=== PATIENT | female | born 1965 | race Caucasian/White ===

== ENCOUNTER → 2016-06-23 | Outpatient (CLI) | payer BC ==
[~2016-06-23] MED LIST: HYDR200T PO; INSULIN PUMP SQ; LEVO125T6 PO; LISI2.5T PO; NF-DICLOTA PO; SIMV10TA3 PO
--- OUTSIDE RECORDS SUMMARY | 2016-06-23 07:27 | XMS REPORT | Continuity of Care Document ---
Author Author [facility] Organization [facility] Address Unknown Phone Unavailable Care Team Providers Care Manager Custom Name Role Phone PRADIP BRYSON MD PCP Insurance Providers Payer Name Policy Number Subscriber Name Relationship [id number] Tejal Sargent 01 Advance Directives Directive Response Recorded Date/Time Advance Directives No 09/30/15 10:50am Resuscitation Status Full Code 09/30/15 10:50am Chief Complaint and Reason for Visit Chief Complaint Glucose Problems Reason for Visit Anemia Hypoglycemia associated with diabetes Problems Active Problems Medical Problem Onset Date Status Anemia Unknown Acute Hypoglycemia associated with diabetes Unknown Acute Medications Current Home Medications Medication Dose Units Route Directions Days/Qty Instructions Start Date Diclofenac Sod 100 Mg Unknown Dose Oral Daily 09/30/15 Hydroxychloroquine Sulfate 200 Mg Unknown Dose Oral 09/30/15 Lisinopril 2.5 Mg Unknown Dose Oral Daily 09/30/15 Levothyroxine Sodium 125 Mcg Unknown Dose Oral Daily 09/30/15 Simvastatin 10 Mg Unknown Dose Oral 09/30/15 [Insulin Pump] Unknown Dose Sub-Q Continuous 09/30/15 Social History Social History Problem Response Recorded Date/Time Alcohol Use Occasionally Uses 09/30/2015 11:26am Recreational Drug Use No 09/30/2015 10:50am Recent Foreign Travel No 09/30/2015 10:50am Recent Infectious Disease Exposure No 09/30/2015 10:50am Hospitalization with Isolation Denies 09/30/2015 10:50am Smoking Status Never a Smoker 09/30/2015 10:50am Query Response Start Date Stop Date Smoking Status Never a Smoker Hospital Discharge Instructions No hospital discharge instructions. Plan of Care Discharge Date 09/30/15 1:14pm Disposition 01 HOME, SELF-CARE Condition at Discharge Improved Instructions/Education Provided High Protein Diet (ED) Iron Rich Diet (ED) Diabetic Hypoglycemia (ED) Iron Deficiency Anemia (DC) Prescriptions See Medication Section Referrals PRADIP BRYSON MD - Primary Care Physician Additional Instructions/Education TAKE IRON PILL DAILY ADD DAILY STOOL SOFTENER WHILE TAKING IRON CHECK YOUR BLOOD GLUCOSE 4 TIMES A DAY--BEFORE EACH MEAL AND AT BEDTIME, AND KEEP DIARY HIGH PROTEIN DIET FOLLOW UP WITH YOUR DR THIS WEEK FOR FURTHER CARE RETURN TO ER IF SYMPTOMS RETURN All discharge instructions reviewed with patient and/or family. Voiced understanding. Functional Status No functional status results. Allergies, Adverse Reactions, Alerts No known allergies. Immunizations No immunization records. Vital Signs Acute Vital Signs Vital Response Date/Time Temperature (Fahrenheit) 97.2 degrees F (97.6 - 99.5) 09/30/2015 10:50am Temperature (Calculated Celsius) 36.77445 degrees C (36.4 - 37.5) 09/30/2015 10:50am Pulse Rate (adult) 77 bpm (60 - 90) 09/30/2015 10:50am Respiratory Rate 16 bpm (12 - 24) 09/30/2015 10:50am O2 Sat by Pulse Oximetry 100 % (88 - 100) 09/30/2015 10:50am Blood Pressure 138/70 mm Hg 09/30/2015 10:50am Blood Pressure Mean 92 mm Hg 09/30/2015 10:50am Pain Pain Intensity 0 09/30/2015 10:50am Height (Feet) 5 feet 09/30/2015 10:50am Height (Inches) 3 inches 09/30/2015 10:50am Height (Calculated Centimeters) 160.162367 cm 09/30/2015 10:50am Weight (Pounds) 170 pounds 09/30/2015 10:50am Weight (Calculated Kilograms) 77.268628 kilograms 09/30/2015 10:50am Height 5 ft 3 in Weight 170 lb Body Mass Index 30.1 kg/m^2 Results Laboratory Results Test Name Result Units Flags Reference Collection Date/Time Result Date/ Time Comments White Blood Count 6.9 10^3/uL 4.3-11.0 09/30/2015 11:09/30/2015 11 :25am Red Blood Count 3.69 10^6/uL L 4.35-5.85 09/30/2015 11:09/30/2015 11 :25am Hemoglobin 9.0 G/DL L 11.5-16.0 09/30/2015 11:09/30/2015 11:25am Hematocrit 29 % L 35-52 09/30/2015 11:09/30/2015 11:25am Mean Corpuscular Volume 79 FL L 80-99 09/30/2015 11:09/30/2015 11: 25am Mean Corpuscular Hemoglobin 24 PG L 25-34 09/30/2015 11:09/30/2015 11:25am Mean Corpuscular Hemoglobin Concent 31 G/DL L 32-36 09/30/2015 11: 11:25am Red Cell Distribution Width 15.6 % H 10.0-14.5 09/30/2015 11:2015 11:25am Platelet Count 377 10^3/uL 130-400 09/30/2015 11:09/30/2015 11: 25am Mean Platelet Volume 9.3 FL 7.4-10.4 09/30/2015 11:09/30/2015 11: 25am Neutrophils (%) (Auto) 74 % 42-75 09/30/2015 11:09/30/2015 11: 25am Lymphocytes (%) (Auto) 13 % 12-44 09/30/2015 11:09/30/2015 11: 25am Monocytes (%) (Auto) 10 % 0-12 09/30/2015 11:09/30/2015 11:25am Eosinophils (%) (Auto) 1 % 0-10 09/30/2015 11:09/30/2015 11:25am Basophils (%) (Auto) 1 % 0-10 09/30/2015 11:09/30/2015 11:25am Neutrophils # (Auto) 5.1 X 10^3 1.8-7.8 09/30/2015 11:09/30/2015 11:25am Lymphocytes # (Auto) 0.9 X 10^3 L 1.0-4.0 09/30/2015 11:09/30/2015 11:25am Monocytes # (Auto) 0.7 X 10^3 0.0-1.0 09/30/2015 11:09/30/2015 11: 25am Eosinophils # (Auto) 0.1 10^3/uL 0.0-0.3 09/30/2015 11:09/30/2015 11:25am Basophils # (Auto) 0.1 10^3/uL 0.0-0.1 09/30/2015 11:09/30/2015 11 :25am Urine Color YELLOW 09/30/2015 12:pm 09/30/2015 12:54pm Urine Clarity CLEAR 09/30/2015 12:pm 09/30/2015 12:54pm Urine pH 6 5-9 09/30/2015 12:pm 09/30/2015 12:54pm Urine Specific [place] 1.015 * 1.016-1.022 09/30/2015 12:pm 2015 12:54pm Urine Protein 2+ * NEGATIVE 09/30/2015 12:pm 09/30/2015 12:54pm Urine Glucose (UA) 3+ * NEGATIVE 09/30/2015 12:pm 09/30/2015 12:54pm Urine RBC (Auto) NEGATIVE NEGATIVE 09/30/2015 12:pm 09/30/2015 12: 54pm Urine Ketones NEGATIVE NEGATIVE 09/30/2015 12:pm 09/30/2015 12: 54pm Urine Nitrite NEGATIVE NEGATIVE 09/30/2015 12:pm 09/30/2015 12: 54pm Urine Bilirubin NEGATIVE NEGATIVE 09/30/2015 12:pm 09/30/2015 12: 54pm Urine Urobilinogen NORMAL MG/DL NORMAL 09/30/2015 12:pm 09/30/2015 12 :54pm Urine Leukocyte Esterase NEGATIVE NEGATIVE 09/30/2015 12:pm 2015 12:54pm Urine RBC NONE /HPF 09/30/2015 12:pm 09/30/2015 12:54pm Urine WBC 0-2 /HPF 09/30/2015 12:pm 09/30/2015 12:54pm Urine Bacteria NEGATIVE /HPF 09/30/2015 12:27pm 09/30/2015 12:54pm Urine Squamous Epithelial Cells 2-5 /HPF 09/30/2015 12:pm 2015 12:54pm Urine Crystals NONE /LPF 09/30/2015 12:pm 09/30/2015 12:54pm Urine Casts NONE /LPF 09/30/2015 12:pm 09/30/2015 12:54pm Urine Mucus SMALL /LPF * 09/30/2015 12:pm 09/30/2015 12:54pm Urine Culture Indicated NO 09/30/2015 12:27pm 09/30/2015 12:54pm Sodium Level 143 MMOL/L 135-145 09/30/2015 11:09/30/2015 11:48am Potassium Level 3.8 MMOL/L 3.6-5.0 09/30/2015 11:09/30/2015 11: 48am Chloride Level 106 MMOL/L 98-107 09/30/2015 11:09/30/2015 11:48am Carbon Dioxide Level 26 MMOL/L 21-32 09/30/2015 11:09/30/2015 11: 48am Anion Gap 11 MMOL/L 5-14 09/30/2015 11:09/30/2015 11:48am Blood Urea Nitrogen 14 MG/DL 7-18 09/30/2015 11:09/30/2015 11: 48am Creatinine 0.66 MG/DL 0.60-1.30 09/30/2015 11:09/30/2015 11:48am BUN/Creatinine Ratio 21 09/30/2015 11:09/30/2015 11:48am Estimat Glomerular Filtration Rate > 60 09/30/2015 11:2015 11:48am GFR INTERPRETIVE DATA UNITS FOR ESTIMATED GFR (eGFR): mL/min/1.73 M2 REFERENCE RANGE FOR ESTIMATED GFR (eGFR) eGFR NORMAL eGFR >60 MODERATELY DECREASED eGFR 30-59 SEVERLY DECREASED eGFR 15-29 KIDNEY FAILURE <15 (OR DIALYSIS) Glucose Level 47 MG/DL CL 70-105 09/30/2015 11:09/30/2015 11:48am RESULTS CALLED TO AMBROSIO AT 1147. RESULTS READ BACK: YES. Glucometer 131 MG/DL H 70-110 09/30/2015 11:36am 09/30/2015 12:01pm Calcium Level 8.2 MG/DL L 8.5-10.1 09/30/2015 11:09/30/2015 11:48am Magnesium Level 2.0 MG/DL 1.8-2.4 09/30/2015 11:09/30/2015 11: 48am Total Bilirubin 0.6 MG/DL 0.1-1.0 09/30/2015 11:11a09/30/2015 11: 48am Alkaline Phosphatase 46 U/L 40-136 09/30/2015 11:09/30/2015 11: 48am Aspartate Amino Transf (AST/SGOT) 19 U/L 5-34 09/30/2015 11:2015 11:48am Alanine Aminotransferase (ALT/SGPT) 11 U/L 0-55 09/30/2015 11:11a 11:48am Total Protein 6.1 G/DL L 6.4-8.2 09/30/2015 11:09/30/2015 11:48am Albumin 3.8 G/DL 3.2-4.5 09/30/2015 11:11a09/30/2015 11:48am Amylase Level 61 U/L 25-125 09/30/2015 11:09/30/2015 11:48am Lipase 93 U/L H 8-78 09/30/2015 11:11a09/30/2015 11:48am TSH [place] Testing 1.12 UIU/ML 0.35-4.94 09/30/2015 11:2015 12:05pm Procedures No known history of procedures. Encounters Encounter Location Arrival/Admit Date Discharge/Depart Date Attending Provider Departed Emergency Room [facility] 09/30/15 10:48am 1:14pm NACHO ESPARZA DO Recent Diagnosis
--- NOTE | 2016-06-23 20:56 | Diagnostic Imaging Report ---
Digital mammogram bilateral screening. This study was compared to the prior exams of 03/12/2014, 02/01/2012, and 12/28/2009. At this time, there are no current complaints. The current study was also evaluated with a Computer Aided Detection (CAD) system. FINDINGS: The fibroglandular tissue in both breasts is heterogeneously dense. This does limit the sensitivity of this exam. Overall, there does not appear to have been any significant change when compared to the prior study. No primary or secondary sign of malignancy is noted. IMPRESSION: 1. There is no radiographic evidence for malignancy. 2. The patient should have her annual bilateral screening mammogram on schedule in June 2017. ACR BI-RADS Category 1: Negative. Result letter will be mailed to the patient. Note: At least 10% of breast cancer is not imaged by mammography. Dictated by: Dictated on workstation # [id number]
== END ==
LOC: RAD 07:24
PROVIDERS: ATTEND Family Medicine
DX: Z12.31 Encounter for screening mammogram for malignant neoplasm of breast (principal)
CPT/HCPCS: 77067

== ENCOUNTER → 2018-02-09 | Outpatient (CLI) | payer BC ==
[~2018-02-09] MED LIST changes: +DICL100T3 PO; -HYDR200T PO; +HYDR200T78 PO; -NF-DICLOTA PO
--- NOTE | 2018-02-09 09:37 | Diagnostic Imaging Report ---
Indication: Routine screening. Comparison is made with prior mammogram from 06/23/2016 and 03/12/2014. 2-D and 3-D bilateral screening mammography was performed with CAD. Scattered fibroglandular densities are identified bilaterally. The parenchymal pattern is stable. No mass or malignant-appearing microcalcifications are seen. The axillae are unremarkable. Impression: BI-RADS category 1 No mammographic features suspicious for malignancy are identified. Dictated by: Dictated on workstation # [id number]
== END ==
LOC: RAD 07:30
PROVIDERS: ATTEND Family Medicine
DX: Z12.31 Encounter for screening mammogram for malignant neoplasm of breast (principal)
CPT/HCPCS: 77067

== ENCOUNTER 2018-03-14 15:24 | Outpatient (CLI) | payer BC ==
[~2018-03-14] VITALS: Ht 160 cm; Wt 69.4 kg
[2018-03-14] MEDS ORDERED: LEVO137T2 PO (15:27)
[2018-03-14] MEDS ORDERED: LISI10TA2 PO (15:27)
[2018-03-14] MEDS ORDERED: ATOR10TA66 PO (15:27)
[2018-03-14] MEDS ORDERED: DICL75TA2 PO (15:27)
== END 2018-03-14 15:29 | disposition home or self-care (01) ==
LOC: PREOP 15:24
PROVIDERS: ATTEND Surgery
DX: Z01.818 Encounter for other preprocedural examination (principal)

== ENCOUNTER 2018-03-19 07:44 | Day surgery (SDC) | payer BC ==
[~2018-03-19] VITALS: Ht 160 cm; Wt 69.4 kg
[~2018-03-19 07:44] MED LIST changes: +ATOR10TA66 PO; +DICL75TA2 PO; +LEVO137T2 PO; +LISI10TA2 PO
[2018-03-19] MEDS ORDERED: NS IV 500 ML 500 ML IV PRN (07:53)
[2018-03-19] MEDS ORDERED: MIDAZOLAM 2 MG/2 ML (VERSED) VIAL IVP ONE (08:00)
[2018-03-19] MEDS ORDERED: fentaNYL INJECTION 100 MCG/2 ML AMP IVP ONE (08:00)
[2018-03-19 08:07] VITALS: BP 135/59
--- NOTE | 2018-03-19 08:34 | History & Physicial ---
History of Present Illness History of Present Illness Reason for visit/HPI to undergo screening colonoscopy Date of Admission 03/19/18 Date Seen by a Provider: Mar 19, 2018 Time Seen by a Provider: 08:33 I consulted on this patient on 03/19/18 08:32 Attending Physician Carlotta Rashid MD Admitting Physician Micha Lucia MD Consult Allergies and Home Medications Allergies Coded Allergies: No Known Drug Allergies (Unverified , 09/30/15) Home Medications Atorvastatin Calcium 10 Mg Tablet, 10 MG PO HS, (Reported) Diclofenac Sodium 75 Mg Tablet.dr, 75 MG PO BID, (Reported) Levothyroxine Sodium 137 Mcg Tablet, 137 MCG PO DAILY, (Reported) Lisinopril 10 Mg Tablet, 10 MG PO DAILY, (Reported) [Insulin Pump] , Unknown Dose SQ CONTINUOUS, (Reported) Patient Home Medication List Home Medication List Reviewed: Yes Past Efbmiwx-Qiahvt-Kjhqzy Hx Patient Social History Marrital Status: Alcohol Use: Rarely Uses Recreational Drug Use: No Smoking Status: Never a Smoker Recent Foreign Travel: No Contact w/other who traveled: No Recent Hopitalizations: No Recent Infectious Disease Expo: No Immunizations Up To Date Date of Influenza Vaccine: Jan 15, 2018 Seasonal Allergies Seasonal Allergies: No Surgeries No Respiratory No Cardiovascular Yes High Cholesterol, Hypertension Neurological No Reproductive System Hx Reproductive Disorders: No Female Reproductive Disorders: Denies Genitourinary No Gastrointestinal No Musculoskeletal Yes Arthritis Endocrine History of Endocrine Disorders: Yes Endocrine Disorders: Diabetes, Insulin dep, Hypothyroidsim Review of Systems Constitutional: no symptoms reported EENTM: no symptoms reported Respiratory: no symptoms reported Cardiovascular: no symptoms reported Gastrointestinal: no symptoms reported Genitourinary: no symptoms reported Musculoskeletal: joint pain Skin: no symptoms reported Psychiatric/Neurological: No Symptoms Reported Physical Exam Vital Signs Vital Signs - First Documented 03/19/18 08:07 Temp 98.6 Pulse 74 Resp 16 B/P (MAP) 135/59 (84) Pulse Ox 100 O2 Delivery Room Air Capillary Refill : Height, Weight, BMI Height: 5'3.00" Weight: 153lbs. 0.0oz. 69.669284kb; 27.1 BMI Method:Stated General Appearance: No Apparent Distress Neck: Normal Inspection Respiratory: Lungs Clear Cardiovascular: Regular Rate, Rhythm Gastrointestinal: Non Tender, Soft Rectal: Deferred Extremity: Normal Inspection Neurologic/Psychiatric: Alert, Oriented x3 Skin: Warm/Dry Assessment/Plan Assessment and Plan lady to undergo screening colonoscopy. Discussed in detail. Admission Diagnosis Admission Status: Other (Outpt Proc) CARLOTTA RASHID MD Mar 19, 2018 08:34
--- NOTE | 2018-03-19 08:34 | Conscious Sedation/ASA ---
Conscious Sedation Pre-Proced Time 08:34 ASA Score 2 For ASA 3 and 4: Consider anesthesia and medical clearance. Also, for patients with a history of failed moderate sedation consider anesthesia. Airway Lungs Heart ASA score ASA 1: a normal healthy patient ASA 2: a patient with a mild systemic disease (mid diabetes, controlled hypertension, obesity ASA 3: a patient with a severe systemic disease that limits activity (angina , COPD, prior Myocardial infarction) ASA 4: a patient with an incapacitating disease that is a constant threat to life (CHF, renal failure) ASA 5: a moribund patient not expected to survive 24 hrs. (ruptured aneurysm) ASA 6: a declared brain patient whose organs are being harvested. For emergent operations, add the letter E after the classification Mallampati Classification Grade 1 Sedation Plan Discussed options with patient/fam The patient is an appropriate candidate to undergo the planned procedure, sedation, and anesthesia. The patient immediately re-assessed prior to indication. CARLOTTA RASHID MD Mar 19, 2018 08:34
[2018-03-19] MEDS ORDERED: NS IV 500 ML 500 ML ONE (08:40)
--- OUTSIDE RECORDS SUMMARY | 2018-03-19 08:48 | XMS REPORT | Continuity of Care Document ---
Author Author [facility] Organization [facility] Address Unknown Phone Unavailable Allergies Active Description Code Type Severity Reaction Onset Reported/Identified Relationship to Patient Clinical Status Yes No Known Drug Allergies [id number] Drug Allergy Unknown N/A 09/30/2015 Medications There is no data. Problems Date Dx Coded Attending Type Code Diagnosis Diagnosed By 03/03/2014 Ot V76.12 03/07/2014 Ot V76.12 04/01/2014 PRADIP BRYSON MD, Ot V76.12 08/03/2015 PRADIP BRYSON MD, Ot V76.12 OTH SCREEN MAMMO-MALIGN NEOPLASM OF ANALILIA 08/03/2015 PRADIP BRYSON MD Ot V76.12 OTH SCREEN MAMMO-MALIGN NEOPLASM OF ANALILIA 08/04/2015 PRADIP BRYSON MD Ot V76.12 OTH SCREEN MAMMO-MALIGN NEOPLASM OF ANALILIA 09/30/2015 VILMA DO, NACHO K Ot D64.9 ANEMIA, UNSPECIFIED 09/30/2015 VILMA DO, NACHO K Ot E11.649 TYPE 2 DIABETES MELLITUS WITH HYPOGLYCEM 09/30/2015 VILMA DO, NACHO K Ot Z79.4 ALF (CURRENT) USE OF INSULIN 09/30/2015 PRADIP BRYSON MD Ot V76.12 OTH SCREEN MAMMO-MALIGN NEOPLASM OF ANALILIA 09/30/2015 PRADIP BRYSON MD Ot V76.12 OTH SCREEN MAMMO-MALIGN NEOPLASM OF ANALILIA 10/01/2015 VILMA DO, NACHO K Ot D64.9 ANEMIA, UNSPECIFIED 10/01/2015 VILMA DO, NACHO K Ot E11.649 TYPE 2 DIABETES MELLITUS WITH HYPOGLYCEM 10/01/2015 VILMA DO, NACHO K Ot 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 10/16/2015 VILMA DO, NACHO K Ot D64.9 ANEMIA, UNSPECIFIED 10/16/2015 VILMA DO, NACHO K Ot E11.649 TYPE 2 DIABETES MELLITUS WITH HYPOGLYCEM 10/16/2015 NACHO ESPARZA DO Ot Z79.4 ALF (CURRENT) USE OF INSULIN 06/23/2016 PRADIP BRYSON MD Ot V76.12 OTH SCREEN MAMMO-MALIGN NEOPLASM OF ANALILIA 06/24/2016 PRADIP BRYSON MD Ot Z12.31 ENCNTR SCREEN MAMMOGRAM FOR MALIGNANT NE 07/06/2016 PRADIP BRYSON MD Ot Z12.31 ENCNTR SCREEN MAMMOGRAM FOR MALIGNANT NE 02/07/2018 PRADIP BRYSON MD Ot V76.12 OTH SCREEN MAMMO-MALIGN NEOPLASM OF ANALILIA 02/07/2018 PRADIP BRYSON MD Ot Z12.31 ENCNTR SCREEN MAMMOGRAM FOR MALIGNANT NE 02/09/2018 PRADIP BRYSON MD Ot V76.12 OTH SCREEN MAMMO-MALIGN NEOPLASM OF [place]NALIL[place] 02/09/2018 PRADIP BRYSON MD Ot Z12.31 ENCNTR SCREEN MAMMOGRAM FOR MALIGNANT NE 02/13/2018 PRADIP BRYSON MD Ot Z12.31 ENCNTR SCREEN MAMMOGRAM FOR MALIGNANT NE 02/23/2018 PRADIP BRYSON MD Ot Z12.31 ENCNTR SCREEN MAMMOGRAM FOR MALIGNANT NE 02/26/2018 PRADIP BRYSON MD Ot V76.12 OTH SCREEN MAMMO-MALIGN NEOPLASM OF ANALILIA 02/26/2018 PRADIP BRYSON MD, Ot Z12.31 ENCNTR SCREEN MAMMOGRAM FOR MALIGNANT NE 02/26/2018 PRADIP BRYSON MD, Ot Z12.31 ENCNTR SCREEN MAMMOGRAM FOR MALIGNANT NE Procedures There is no data. Results There is no data. Encounters ACCT No. Visit Date/Time Discharge Status Pt. Type Provider Facility Loc./Unit Complaint [id number] 02/09/2018 07:30:00 02/09/2018 23:59:59 CLS Outpatient PRADIP BRYSON MD [facility] RAD SCREENING [id number] 06/23/2016 07:24:00 06/23/2016 23:59:59 CLS Outpatient PRADIP BRYSON MD [facility] RAD SCREENING [id number] 09/30/2015 10:48:00 09/30/2015 13:14:00 DIS Emergency VILMA DO, NACHO Marilou [facility] ER LOW BLOOD SUGAR [id number] 03/12/2014 08:19:00 03/12/2014 23:59:59 CLS Outpatient BRAYDON YBARRA, PRADIP Bales [facility] RAD ROUTINE [id number] 03/19/2018 09:00:00 PEN Preadmit RACHID YBARRA, CARLOTTA Sanz [facility] ENDO SCREENING [id number] 12/28/2009 07:19:00 Document Registration
[2018-03-19] MEDS ORDERED: MIDAZOLAM 2 MG/2 ML (VERSED) VIAL ONE ×3 (09:17→09:18)
[2018-03-19] MEDS ORDERED: fentaNYL INJECTION 100 MCG/2 ML AMP ONE (09:18)
--- NOTE | 2018-03-19 09:43 | Endo Procedure Record ---
Endo Procedure Report Date of Procedure Last Colonoscopy: No Mar 19, 2018 Surgeon (s) CARLOTTA RASHID MD Post Procedure/Op Diagnosis sigmoid diverticulosis Procedure Performed colonoscopy to cecum Description of Procedure Specimen(s) collected/removed None Description of the Procedure Indication for the procedure: This lady came in for screening colonoscopy. She reported a family history of colon cancer. Informed consent was obtained after reviewing the procedure in detail. Description of procedure: She was placed in left lateral decubitus position and her vital signs were monitored. Conscious sedation was achieved using Versed and fentanyl. Digital rectal examination was unremarkable. The colonoscope was then introduced into the rectum and advanced all the way up to the cecum. Scope was then withdrawn slowly and the mucosa examined in a systematic fashion. Finding: Sigmoid diverticulosis. No polyps were found. She tolerated the procedure well and was taken back to the nursing area in a stable condition. Impression: Screening colonoscopy. Positive family history. No polyps. Recommend repeating in 5 years. Copy Copies To 1: PRADIP BRYSON MD, XAVIER M MD Mar 19, 2018 09:43
--- NOTE | 2018-03-19 09:44 | Discharge Inst-Simple/Standard ---
Discharge Inst-Standard Discharge Medications New, Converted or Re-Newed RX: Other Patient Instructions/Follow Up Plan of Care/Instructions/FU: repeat colonoscopy in 5 years Activity as Tolerated: Yes Discharge Diet: ADA Diet CARLOTTA RASHID MD Mar 19, 2018 09:44
[2018-03-19 09:55] VITALS: BP 108/59
[2018-03-19 10:25] VITALS: BP 121/51
[2018-03-19 10:45] VITALS: BP 121/51
== END 2018-03-19 10:45 | disposition home or self-care (01) ==
LOC: ENDO 07:44
PROVIDERS: ATTEND Surgery
DX: Z12.11 Encounter for screening for malignant neoplasm of colon (principal); Z80.0 Family history of malignant neoplasm of digestive organs; K57.30 Diverticulosis of large intestine without perforation or abscess without bleeding; E78.00 Pure hypercholesterolemia, unspecified; I10 Essential (primary) hypertension; E11.9 Type 2 diabetes mellitus without complications; E03.9 Hypothyroidism, unspecified; Z79.4 Long term (current) use of insulin; Z79.899 Other long term (current) drug therapy
CPT/HCPCS: 36415; 84703

== ENCOUNTER → 2019-03-11 | Outpatient (CLI) | payer BC ==
[~2019-03-11] MED LIST changes: -DICL100T3 PO; +DICL100T83 PO
--- NOTE | 2019-03-12 09:58 | Diagnostic Imaging Report ---
Digital mammogram. Bilateral screening. The study was compared to the prior exams of 02/09/2018, 06/23/2016 and 03/12/2014. At this time there are no current complaints. The current study was also evaluated with a Computer Aided Detection (CAD) system. FINDINGS: The fibroglandular tissue in both breasts is heterogeneously dense. This does limit the sensitivity of this exam. Overall, there does not appear to have been any significant change when compared to the prior study. No primary or secondary sign of malignancy is noted. IMPRESSION: There is no radiographic evidence for malignancy. ACR BI-RADS Category 1: Negative. Result letter will be mailed to the patient. Note: At least 10% of breast cancer is not imaged by mammography. Dictated by: Dictated on workstation # [id number]
== END ==
LOC: RAD 07:19
PROVIDERS: ATTEND Family Medicine
DX: Z12.31 Encounter for screening mammogram for malignant neoplasm of breast (principal)
CPT/HCPCS: 77067

== ENCOUNTER → 2020-07-21 | Outpatient (CLI) | payer BC ==
[~2020-07-21] MED LIST changes: -LISI10TA2 PO; +LISI10TA25 PO; +SIMV10TA26 PO; -SIMV10TA3 PO
--- NOTE | 2020-07-21 13:05 | Diagnostic Imaging Report ---
INDICATION: Routine screening. COMPARISON: 03/11/2019 and 02/09/2018. TECHNIQUE: 2D and 3D bilateral screening mammography was performed with CAD. FINDINGS: Both breasts are heterogeneously dense, limiting the sensitivity of mammography. No mass or malignant appearing microcalcifications are seen. The axillae are unremarkable. IMPRESSION: No mammographic features suspicious for malignancy are identified. ACR BI-RADS Category 1: Negative. Result letter will be mailed to the patient. Note: At least 10% of breast cancer is not imaged by mammography. Dictated by: Dictated on workstation # [id number]
== END ==
LOC: RAD 07:30
PROVIDERS: ATTEND Family Medicine
DX: Z12.31 Encounter for screening mammogram for malignant neoplasm of breast (principal)
CPT/HCPCS: 77063; 77067

== ENCOUNTER → 2021-10-14 | Outpatient (CLI) | payer BC ==
[~2021-10-14] MED LIST changes: -DICL100T83 PO; -LISI2.5T PO; +LISI2.5T13 PO; +NF-DICLOTA PO
--- NOTE | 2021-10-14 10:43 | Diagnostic Imaging Report ---
Indication: Routine screening. Comparison is made with prior mammogram from 07/21/2020 and 03/11/2019. 2-D and 3-D bilateral screening mammography was performed with CAD. CAD is utilized. The current study was also evaluated with a Computer Aided Detection (CAD) system. Scattered fibroglandular densities are identified bilaterally. The parenchymal pattern is stable. No mass or malignant-appearing microcalcifications are seen. Axillae are unremarkable. IMPRESSION: BI-RADS Category 1 No mammographic features suspicious for malignancy are identified. ACR BI-RADS Category 1: Negative. Result letter will be mailed to the patient. Note: At least 10% of breast cancer is not imaged by mammography. Dictated by: Dictated on workstation # [id number]
== END ==
LOC: RAD 07:30
PROVIDERS: ATTEND Family Medicine
DX: Z12.31 Encounter for screening mammogram for malignant neoplasm of breast (principal)
CPT/HCPCS: 77063; 77067

== ENCOUNTER → 2022-10-20 | Outpatient (CLI) | payer BC ==
--- NOTE | 2022-10-20 11:39 | Diagnostic Imaging Report ---
INDICATION: Routine screening. Comparison is made with prior mammogram from 10/14/2021 and 07/21/2020. 2-D and 3-D bilateral screening mammography was performed with CAD. Both breasts are heterogeneously dense, limiting the sensitivity of mammography. The parenchymal pattern is stable. No mass or malignant-appearing microcalcifications are seen. Axillae are unremarkable. IMPRESSION: No mammographic features suspicious for malignancy are identified. ACR BI-RADS Category 1: Negative. Result letter will be mailed to the patient. Note: At least 10% of breast cancer is not imaged by mammography. BI-RADS Category 1 Dictated by: Dictated on workstation # [id number]
== END ==
LOC: RAD 10:21
PROVIDERS: ATTEND Family Medicine
DX: Z12.31 Encounter for screening mammogram for malignant neoplasm of breast (principal)
CPT/HCPCS: 77063; 77067

== ENCOUNTER 2022-11-09 06:28 | Outpatient (CLI) | payer BC ==
[~2022-11-09] VITALS: Ht 160 cm; Wt 72.6 kg
== END 2022-11-09 09:57 ==
LOC: PREOP 06:28
PROVIDERS: ATTEND Surgery
DX: Z01.818 Encounter for other preprocedural examination (principal)

== ENCOUNTER 2022-11-10 11:53 | Day surgery (SDC) | payer OTHER, BC ==
[~2022-11-10] VITALS: Ht 160 cm; Wt 72.6 kg
[2022-11-10] MEDS ORDERED: LACTATED RINGERS 1,000 ML IV STA (11:55)
[2022-11-10 12:06] VITALS: BP 116/72
--- NOTE | 2022-11-10 13:07 | Progress Note-Pre Operative ---
Pre-Operative Progress Note Date H&P Reviewed: Nov 10, 2022 Time H&P Reviewed: 13:07 History & Physical: H&P Reviewed, Patient Examed, No changes noted Pre-Operative Diagnosis: FAMILY HX COLON CANCER ANTHONY ANTON DO Nov 10, 2022 13:07
[2022-11-10] MEDS ORDERED: PROPOFOL INJECTION 50 ML IV ONE (13:54)
[2022-11-10 13:55] VITALS: BP 100/55
[2022-11-10 14:00] VITALS: BP 100/55
--- NOTE | 2022-11-10 14:00 | Discharge Inst-Simple/Standard ---
Discharge Inst-Standard Patient Instructions/Follow Up Plan of Care/Instructions/FU: 5 years Latanya any issues before that be seen at that time. Activity as Tolerated: Yes Discharge Diet: Regular Diet ANTHONY ANTON DO Nov 10, 2022 14:00
[2022-11-10 14:15] VITALS: BP 100/55
--- NOTE | 2022-11-10 14:18 | Anesthesia-General Post-Op ---
MAC Patient Condition Mental Status/LOC: Same as Preop Cardiovascular: Satisfactory Nausea/Vomiting: Absent Respiratory: Satisfactory Pain: Controlled Complications: Absent Post Op Complications Complications None Follow Up Care/Instructions Patient Instructions None needed. Anesthesiology Discharge Order Discharge Order Patient is doing well, no complaints, stable vital signs, no apparent adverse anesthesia problems. No complications reported per nursing. DYLON AYALA CRNA Nov 10, 2022 14:18
--- NOTE | 2022-11-10 15:03 | OPERATIVE REPORT ---
DATE OF SERVICE: 11/10/2022 PREOPERATIVE DIAGNOSIS: Family history of colon cancer. POSTOPERATIVE DIAGNOSES: Family history of colon cancer and diverticulosis. PROCEDURE: Colonoscopy. SURGEON: Anthony Pelaez DO ANESTHESIA: Per HUMAN CAPITAL MANAGER. ESTIMATED BLOOD LOSS: None. COMPLICATIONS: None. INDICATIONS: The patient is a 56-year-old female, needing screening colonoscopy. She understands risks and benefits of procedure and wished to proceed. Consent was signed in chart. DESCRIPTION OF PROCEDURE: The patient was taken to endoscopy suite, placed in left lateral recumbent position. Timeout was performed. Digital rectal exam was performed. No palpable polyps, masses or ulcerations. Scope was inserted in the rectum, advanced all the way to the cecum with minimal difficulty. Prep was adequate. Scope was slowly retracted back. No polyps, masses or ulcerations in the cecum, ascending, transverse, descending and sigmoid colon. Sigmoid colon had some diverticulosis present. Scope was then continuously retracted back. Scope retroflexed in the rectum, noting no other pathology. Scope was returned to its normal position, slowly withdrawn until completely removed. The patient tolerated the procedure well without complications, taken to recovery room in stable condition. RECOMMENDATIONS: The patient will need repeat colonoscopy in 5 years. Any issues before that, be seen at that time. With diverticulosis, we would recommend high fiber diet. Job ID: [id number] DocumentID: [id number] Dictated Date: 11/10/2022 13:59:33 Shipper Receiver Date: 11/10/2022 15:01:00 Dictated By: ANTHONY PELAEZ DO
== END 2022-11-10 14:27 | disposition home or self-care (01) ==
LOC: ENDO 11:53
PROVIDERS: ATTEND Surgery
DX: Z12.11 Encounter for screening for malignant neoplasm of colon (principal); K57.30 Diverticulosis of large intestine without perforation or abscess without bleeding; Z80.0 Family history of malignant neoplasm of digestive organs; E10.9 Type 1 diabetes mellitus without complications; Z79.4 Long term (current) use of insulin